=== PATIENT | male | born 1940 | race Caucasian/White ===

== ENCOUNTER → 2024-04-06 10:53 | Outpatient (REF) | payer OTHER, SELFPAY | LOC: RCS 10:53 | PROVIDERS: ATTENDING PHYSICIAN Internal Medicine Cardiovascular Disease; FAMILY PHYSICIAN Internal Medicine Geriatric Medicine | DX: I42.9 Cardiomyopathy, unspecified (principal) | CPT/HCPCS: 93306 ==

== ENCOUNTER → 2024-10-07 12:40 | Outpatient (REF) | payer OTHER, SELFPAY | LOC: RAD 12:40 | PROVIDERS: ATTENDING PHYSICIAN Internal Medicine Geriatric Medicine | DX: K81.0 Acute cholecystitis (principal); R93.5 Abnormal findings on diagnostic imaging of other abdominal regions, including retroperitoneum; N40.2 Nodular prostate without lower urinary tract symptoms; Z00.00 Encounter for general adult medical examination without abnormal findings; I10 Essential (primary) hypertension; R78.2 Finding of cocaine in blood; E55.9 Vitamin D deficiency, unspecified; K81.1 Chronic cholecystitis; K81.9 Cholecystitis, unspecified; I25.10 Atherosclerotic heart disease of native coronary artery without angina pectoris; R94.31 Abnormal electrocardiogram [ECG] [EKG]; Z13.89 Encounter for screening for other disorder; K21.9 Gastro-esophageal reflux disease without esophagitis | CPT/HCPCS: 76872 ==